=== PATIENT | female | born 1995 | race African-American/Black ===

== ENCOUNTER → 2020-02-06 11:00 | Oncology outpatient (ONC) | payer OTHER, SELFPAY ==
--- NOTE | 2020-01-03 09:37 | ONC.MSW ---
Description: New Referral Navigation Reason for Referral: Irregular menstruation, unspecified abnormal finding/bleeding irregularities Activity: Reviewed referral, assessed medical status, acuity, and immediate needs. Pt is being referred for elevated Factor VIII, bleeding irregularities, and for evaluation, particularly re: or use of hormone medications. Forwarded to scheduling for next available consult visit.
[2020-02-06 12:00] VITALS: BP 109/56; PULSE 72; RESP 16; TEMP 36.7; O2SAT 100
--- NOTE | 2020-02-06 12:43 | P.CONONC_ITS ---
History of Present Illness - Data of Consult Primary Care Provider: Sarika Rios MD - Consult Narrative Narrative: Kourtney Sexton is a 24 year old female who carries a diagnosis of polycystic ovary syndrome who was referred for elevated factor 8 and assessment of venous thromboembolic disease risk. She has a history of irregular menstrual bleeding. Menarche was at age 12 and. His were irregular, often skipping months at a time. Age 17 she began having heavy prolonged bleeding and was started on oral contraceptive pills which controlled her periods well. She also had an IUD in deep probe Provera. Her last injection of depot Provera was in November of 2018. Earlier this year, off the shot, she began to have heavy menstrual. This. She was seen in October at the [facility] in [place]. She had ultrasound done that was suspicious for polycystic ovarian syndrome with prominent ovaries, especially on the right. She had coagulation studies done that showed a normal PT and PTT. Von Willebrand's studies both antigen and activity were normal although in the upper end of the normal range. Factor 8 coagulant was obtained twice on November 19 and also on November 27 with levels of 202%, 210%, and 229% respectively. She was subsequently diagnosed as and is now 17 weeks. She has not had any complications thus far. She is now referred for hematology consultation regarding concern about clotting risk related to her elevated factor 8 level, poly cystic ovary syndrome, and potential need for hormonal medications and her . From her perspective she is generally feeling good. She denies any particular problems with pain, bleeding, localized weakness, fever, chills, nausea, vomiting, cough or shortness of breath. She had 4 wisdom teeth extracted and had no bleeding complications referable to this. She has not had problems with painful leg swelling, pleuritic chest pain, shortness of breath, painful rash on her fingers and toes, or any other thrombotic symptoms. She has no bleeding history except for her menorrhagia. Her mother had a hysterectomy due to menorrhagia and had fibroids of the uterus. There is no other family history of bleeding and no family history of blood clots to her knowledge. She states that she if she gets cut it stops in a normal time frame. She denies any bleeding from her nose, gums, bowels, urine or easy bruising. All other systems are negative. Past medical history 1. 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 She has been in the [employer] the last 5 years. She is in a committed relationship and is accompanied by her significant other who is very supportive. She is not a smoker and only a rare drinker. She does not have a regular exercise program. She generally eats a healthy diet. 2. There is no family history of clotting or bleeding problems as noted above 3. She has no known drug allergies 4. She takes a vitamin but no other medications 5. Except for the wisdom tooth extractions noted above she has had no other operations. 6. She denies high blood pressure, diabetes, rheumatic fever, tuberculosis, heart attacks, strokes, stomach ulcers, pneumonia or any kind of cancer. CC: Sarika Rios MD Home Medications and Allergies Home Medications Medication Instructions Recorded Confirmed Type prenat.vits,bryson,skj-[id number] 1 tab PO DAILY 02/06/20 02/06/20 History [ Vitamin] Allergies Allergy/AdvReac Type Severity Reaction Status Date / Time No Known Drug Allergies Allergy Verified 02/06/20 11:58 Exam Vital signs: Vital Signs Temp Pulse Resp BP Pulse Ox 02/06/20 12:00 98.0 F 72 16 109/56 L 100 Intake and Output 02/05/20 02/06/20 02/06/20 23:59 07:59 15:59 Other: Weight 83.5 kg Patient Weight 02/06/20 23:59 Weight 83.5 kg Narrative: She was in no acute distress. There was no lymphadenopathy in the cervical, supraclavicular axillary regions. Lungs were clear without wheezes or rales. Heart showed a regular rate and rhythm without murmur, gallop or rub. The abdomen is soft and nontender without any palpable hepatosplenomegaly. There was no evidence of phlebitis in the lower extremities. Assessment and Plan (1) Polycystic ovarian syndrome Status: Acute Ms. Sexton has been diagnosed with polycystic ovarian syndrome. This is is a chronic inflammatory condition that can be associated with an increased risk of venous thromboembolic disease. Factor 8 levels can be elevated and appeared to decrease with oral contraceptive therapy as noted in an article published in the [place] Journal of Medical Research volume 148: S1-5 2018. In guidelines published in endocrine practice volume 21 in January of 2015 polycystic ovary syndrome was associated with an approximately 1.5 increased risk of venous thromboembolic disease over that of the general population increasing to 3.7 times that of the general population with oral contraceptives. Another study in the [place] Journal of obstetrics and gynecology volume 207: Page 377, 2012 no onelia poly cystic ovarian syndrome is a hypercoagulable state with a slightly increased risk of venous thromboembolic disease but a protective effect from the use of oral contraceptives. An elevated factor 8 level can be seen in inflammatory conditions. It may be associated with an increased risk of venous thromboembolic disease but does not have direct therapeutic implications. I explained to Ms. Sexton that the relative increase in venous thromboembolic disease translates into very small actual numbers. The annual incidence of venous thrombotic embolic disease is about 4/100,000 in the general population. Accordingly, a 1.5-3.7 fold increase in risk is still very uncommon event. I explained that if she were to have surgery, significant trauma resulting in immobility, or other potentially hypercoagulable events that anticoagulation prophylaxis measures would be the same as those used in the general population. We also discussed the fact that polycystic ovary syndrome can be associated with an increased risk of obstetric complications. These could include miscarriages, gestational diabetes, preeclampsia, Cesarian section, and . I explained her that it would be very important that she be closely followed by her obstetrics team, but that we would not normally initiate any anticoagulation measures other than those that would be routine in the general population. We did discuss long-term strategies to reduce the risk of venous thromboembolic disease. These would include regular exercise, the more intense the better, of at least 3 hours a week. Maintaining ideal body weight is also helpful. She is not currently obese. She understood the role of exercise and weight control and plans to pursue these measures going forward. Impression: 1. Patient has been diagnosed with polycystic ovary syndrome and has an elevated factor 8 2. No personal or family history of blood clots or bleeding other than menorrhagia 3. Patient is 17 weeks by her report Recommendations: 1. Patient was counseled that polycystic ovary syndrome is associated with a relative increased risk of venous thromboembolic disease, unaffected by factor 8 levels, but the absolute risk is quite small 2. Patient was counseled about potentially increased risk of obstetric complications as discussed above, and the importance of following closely with her obstetrics team 3. Prophylaxis for venous thromboembolic disease using the same guidelines as those for the general population 4. Patient was counseled about the importance of regular exercise and maintaining ideal body weight as discussed above 5. Although no specific return appointment has been scheduled to this office, be happy to see her again at any time in the future if I could be of assistance in her care.
== END ==
PROVIDERS: PCP Obstetrics & Gynecology; Referring Provider Obstetrics & Gynecology; Visit Provider Obstetrics & Gynecology
DX: O99.282 Endocrine, nutritional and metabolic diseases complicating pregnancy, second trimester (principal); E28.2 Polycystic ovarian syndrome; Z3A.19 19 weeks gestation of pregnancy
CPT/HCPCS: 99203; 99213

== ENCOUNTER → 2020-05-07 07:53 | Outpatient (CLI) | payer OTHER, SELFPAY ==
[2020-05-07 09:35] LABS: Hematocrit 31.8 % (36-46); Hemoglobin 10.3 g/dL (12.0-16.0)
[2020-05-07 10:21] LABS: GTT (PREG) 1 Hour PP 50gm Dose 93 mg/dL (76-139)
== END ==
PROVIDERS: PCP Obstetrics & Gynecology; Referring Provider Family Medicine; Visit Provider Family Medicine
DX: Z34.90 Encounter for supervision of normal pregnancy, unspecified, unspecified trimester (principal); Z3A.27 27 weeks gestation of pregnancy
CPT/HCPCS: 36415; 82950; 85014; 85018

== ENCOUNTER → 2020-06-18 09:40 | Outpatient (CLI) | payer OTHER, SELFPAY ==
[2020-06-19 10:34] LABS: Strep Grp B PCR POS for Grp B Strep
== END ==
PROVIDERS: PCP Obstetrics & Gynecology; Visit Provider Family Medicine
DX: Z34.93 Encounter for supervision of normal pregnancy, unspecified, third trimester (principal); Z3A.36 36 weeks gestation of pregnancy
CPT/HCPCS: 87653

== ENCOUNTER 2020-07-16 12:04 | Outpatient (CLI) | payer OTHER, SELFPAY ==
--- NOTE | 2020-07-16 12:56 | PM.OBTRLD ---
Visit Information Visit Information Date of evaluation: 07/16/20 Primary OB Provider: Lucia Powell Reason for Evaluation: Yes non-stress test non-stress test reason: other (Post dates) Vital Signs Vital Signs: Temperature 36.8? blood pressure 120/70 heart rate 68 PFSH Medical History Anemia due to chronic blood loss (~2014) Irregular menstrual cycle Polycystic ovarian syndrome Primary dysmenorrhea Vitamin D deficiency Surgical History H/O wisdom tooth extraction (~2014) Family History Mother Uterine fibroid Anemia Adopted Father No problems noted. Grandmother Family history unknown Grandfather Family history unknown Grandmother Cancer Ovarian cancer Grandfather Family history unknown Family estrangement Brother Cancer Retinoblastoma CVA (cerebral vascular accident) Social History marital status: unmarried,living together household members: significant other lives independently: Yes education level: college (some and doing online/[employer] classes currently) occupational status: employed current occupational exposures/hazards: Yes america/zoroastrian: [employer] special america needs: No Smoking Status: Never smoker second hand exposure: No alcohol intake: former (pre- : Wine 1-2X/month = Socially ) substance use type: does not use Evaluation Evaluation Baseline heart rate: 140 Variability: Moderate (11-25) monitor accelerations: Present Monitor Decelerations: Absent Uterine Contraction Intensity: Mild Category of Tracing: Reactive Diagnosis, Plan/Disposition Final Diagnosis (1) 40 weeks gestation of : Status: Acute Plan/Disposition Plan: 24-year-old at 40 weeks and 1 day gestation. NST reactive. Patient is scheduled for induction 07/23/20 if not delivered by then. OB Disposition: home
== END 2020-07-16 12:55 | disposition home or self-care (01) ==
LOC: OB 07-17 07:37
PROVIDERS: PCP Obstetrics & Gynecology; Referring Provider Family Medicine; Visit Provider Family Medicine
DX: O48.0 Post-term pregnancy (principal); Z3A.40 40 weeks gestation of pregnancy
CPT/HCPCS: 59025; G0378; G0379

== ENCOUNTER 2020-07-16 19:26 | Observation (INO) | payer OTHER, SELFPAY ==
[2020-07-16] MEDS: MORPHINE 10 MG/ML INJ 5 MG IM (22:13)
[2020-07-16] MEDS: PROMETHAZINE 25 MG TABLET PO (22:13)
== END 2020-07-16 22:25 | disposition home or self-care (01) ==
PROVIDERS: Admitting Provider Obstetrics & Gynecology; PCP Obstetrics & Gynecology; Referring Provider Obstetrics & Gynecology; Visit Provider Obstetrics & Gynecology
DX: O48.0 Post-term pregnancy (principal); Z3A.40 40 weeks gestation of pregnancy
CPT/HCPCS: 59025; 59050; 96372; G0378; G0379; J2270

== ENCOUNTER 2020-07-17 08:52 | Inpatient (IN) | payer OTHER, SELFPAY ==
[2020-07-17] MEDS: LACTATED RINGERS 1,000 ML 100 ML IV ×2 (09:44→11:42)
[2020-07-17] MEDS: PENICILLIN G POTASSIUM 5,000,000 UNIT in DEXTROSE 5% IN WATER 250 ML IV (09:51)
[2020-07-17 10:02] VITALS: BP 112/66
[2020-07-17 10:17] LABS: COVID19 - ADMIT (NP swab/PCR) Negative (Negative)
[2020-07-17 10:18] LABS: Add Manual Diff / Slide Review NO; Basophils Absolute Auto 100 /uL (0-100); Basophils Percent Auto 1.1 % (0-2); Eosinophils Absolute Auto 0 /uL (0-450); Eosinophils Percent Auto 0.1 % (2-4); Hematocrit 35.9 % (36-46); Hemoglobin 11.6 g/dL (12.0-16.0); Lymphocytes Absolute Auto 1200 /uL (1100-4500); Lymphocytes Percent Auto 11.7 % (25-40); Mean Corpuscular HGB Conc 32.2 % (30-36); Mean Corpuscular Hemoglobin 26.4 PG (26-34); Monocytes Absolute Auto 600 /uL (0-900); Monocytes Percent Auto 6.3 % (3-14); Neutrophils Absolute Auto 8200 /uL (1500-7000); Neutrophils Percent Auto 80.8 % (50-75); Platelet Count 291 X10^3/uL (150-400); Red Blood Cell Count 4.38 X10^6/uL (4.0-5.2); Red Cell Distribution Width 17.1 % (11.6-14.8); White Blood Cell Count 10.1 X10^3/uL (4.5-11.0)
--- NOTE | 2020-07-17 10:34 | P.HPOB_ITS ---
OB HPI Date/Time Date of admission: 07/17/20 Date Patient Seen: 07/17/20 Time Patient Seen: 10:50 History of Present Condition Chief complaint: Observation : 1 Para: 0 Estimated Date of Delivery: 07/15/20 Estimated Gestational Age (weeks): 40w2d Narrative: Kourtney Sexton is a 24 year old at 40 weeks and 2 days gestation. She was seen in clinic yesterday and had membranes swept. She continued to contract the rest of the day and presented to the center in the evening. At that time her cervical exam was unchanged and she was sent home. She could not sleep during the night due to contractions. At about 8:00 a.m. today contractions picked up after passage of her mucus plug. She denies leaking or bleeding and reports good movement. Denies headaches, vision changes abdominal pain or edema. has been uncomplicated. She transferred care from the [facility] at 23 weeks. She was found have elevated Factor VIII as part of a workup for menorrhagia. She saw Dr Joseph with Hematology on 02/06/20. Given no personal or family history of blood clot there was no indication for treatment. History of Present care: good care, initiated at week # (15), number of visits (13) and pounds weight gain (51) Dating criteria: based on 1st trimester US only Ultrasounds: normal 1st trimester US and normal mid trimester US Obstetrical complications: none Medical complications: none Preadmission Labs Blood type: B (+) positive -: Antibody screen: negative, GBS status: positive, HBsAG: negative, HIV: negative and RPR/VDLR: negative -: Chlamydia screen: not detected and Gonorrhea screen: not detected -: Rubella: immune and Varicella: immune HCT: 35.9 HCAB: negative PAP: Normal Quad screen: Normal Urine: Negative 1 hr GTT: 93 Evaluation Evaluation Baseline heart rate: 140 Variability: Moderate (11-25) monitor accelerations: Present Monitor Decelerations: Absent Contraction Frequency (minutes): 4 Status: Category l Cervical dilation (cm): 5 Cervical effacement (%): 100 station: -2 Laboratory results: Laboratory Tests 07/17/20 07/17/20 09:30 09:56 WBC 10.1 RBC 4.38 Hgb 11.6 L Hct 35.9 L MCV 82.0 MCH 26.4 MCHC 32.2 RDW 17.1 H Plt Count 291 Neut % (Auto) 80.8 H Lymph % (Auto) 11.7 L [place] % (Auto) 6.3 Eos % (Auto) 0.1 L Baso % (Auto) 1.1 Neut # (Auto) 8200 H Lymph # (Auto) 1200 [place] # (Auto) 600 Eos # (Auto) 0 Baso # (Auto) 100 SARS-CoV-2 (PCR) Negative PFSH Medical History Anemia due to chronic blood loss (~2014) Irregular menstrual cycle Polycystic ovarian syndrome Primary dysmenorrhea Vitamin D deficiency Surgical History H/O wisdom tooth extraction (~2014) Family History Mother Uterine fibroid Anemia Adopted Father No problems noted. Grandmother Family history unknown Grandfather Family history unknown Grandmother Cancer Ovarian cancer Grandfather Family history unknown Family estrangement Brother Cancer Retinoblastoma CVA (cerebral vascular accident) Social History marital status: unmarried,living together household members: significant other lives independently: Yes education level: college (some and doing online/[employer] classes currently) occupational status: employed current occupational exposures/hazards: Yes am[place]/faith: [employer] special america needs: No Smoking Status: Never smoker second hand exposure: No alcohol intake: former (pre- : Wine 1-2X/month = Socially ) substance use type: does not use Meds Home Medications and Allergies Home Medications Medication Instructions Recorded Confirmed Type prenat.vits,bryson,[id number] 1 tab PO DAILY 02/06/20 07/17/20 History [ Vitamin] Allergies Allergy/AdvReac Type Severity Reaction Status Date / Time No Known Drug Allergies Allergy Verified 07/16/20 20:03 Review of Systems Review of Systems ROS: Yes All systems reviewed with the patient and are negative except as otherwise documented Exam Vital Signs (past 8 hours): - 07/17/20 10:02 Blood Pressure 112/66 Const General: healthy appearing and comfortable [facility] Head: normal to inspection Ears: hearing grossly normal bilaterally Nose: external nose normal Face and sinus: normal facial exam Mouth: oral mucosae normal Eyes General: appearance normal, both eyes and all related structures Neck Neck: normal visual inspection Resp Effort & Inspection: normal respiratory effort Auscultation: clear to auscultation bilaterally Cardio Rate: regular rate Rhythm: regular rhythm Heart Sounds: no murmurs GI Other: Gravid External Female Exam: normal external appearance Manual OB Exam: dilated 5, effaced fully and station -2 Presentation: vertex Estimated Weight (lbs): 8 Back/Spine/Pelvis Back: normal to inspection Skin General: no rashes or lesions noted Extrem General: normal to inspection and no pedal edema Objective Labs Result Diagrams: 07/17/20 09:30 Labs: Laboratory Results - last 24 hr 07/17/20 07/17/20 09:30 09:56 WBC 10.1 RBC 4.38 Hgb 11.6 L Hct 35.9 L MCV 82.0 MCH 26.4 MCHC 32.2 RDW 17.1 H Plt Count 291 Neut % (Auto) 80.8 H Lymph % (Auto) 11.7 L [place] % (Auto) 6.3 Eos % (Auto) 0.1 L Baso % (Auto) 1.1 Neut # (Auto) 8200 H Lymph # (Auto) 1200 [place] # (Auto) 600 Eos # (Auto) 0 Baso # (Auto) 100 SARS-CoV-2 (PCR) Negative Assessment and Plan Assessment and Plan Assessment and Plan narrative: 24-year-old at 40 weeks and 2 days in active labor. has been uncomplicated with good care. She is GBS positive. Plan Admit for labor Penicillin for GBS prophylaxis Epidural now COVID negative Anticipate
[2020-07-17] MEDS: FENT 2MCG/ML BUPIV 0.125% EPI 200 MCG/100 ML PLAST..BAG 12 MCG EPIDURAL ×2 (10:50→15:04)
[2020-07-17] MEDS: PENICILLIN G POTASSIUM 3,000,000 UNIT/50 ML FROZ.PIGGY 100 UNIT IV ×2 (13:48→17:43)
--- NOTE | 2020-07-17 14:40 | PM.OBPNLAB ---
Date/Time Date Patient Seen: 07/17/20 Time Patient Seen: 14:30 Pain Control Pain control: tolerating well and epidural Comments: Complete relief with epidural. Pelvic Exam Dilation (cm): 8 Effacement (%): 100 station: -1 Amniotic membrane status: Ruptured (AROM clear fluid) Contractions Contraction frequency (min): 5 Contraction pattern: Regular Status status: Category l Heart Rate Baseline: 130 Monitor Accelerations: Present Monitor Decelerations: Absent Assessment and Plan Assessment: active labor Plan: continuous present management Comments: 24 year old at 40+2 weeks, progressing well, comfortable with epidural, AROM with clear fluid. She has now received two doses of PCN for GBS prophylaxis. Continue expectant management, anticipate .
--- NOTE | 2020-07-17 19:09 | P.PCNOB_ITS ---
Labor & Delivery Delivery date: 07/17/20 Delivery augmentation: rupture of membranes Delivery monitor: external FHT Route of delivery: L&D Laceration Description: Perineal - 2nd Degree and Vaginal - 2nd Degree Delivery repair: vicryl Estimated blood loss (mL): 750 Anesthesia Type: Epidural Narrative: Patient is a 24-year-old at 40 weeks and 2 days who gave on 07/17/2020 at 18:42. ROXANA: 07/15/20 Hospital problems: 40 weeks of Epidural analgesia STAGE I: Labor Patient presented in active labor. Labor began at approximately 8:00 a.m. after a long latent labor. She went on to receive an epidural with excellent pain control. She was GBS positive and received penicillin for prophylaxis. After 2 doses of antibiotics, artificial rupture membranes occurred at 2:31 p.m. with clear fluid. She was complete at 5:50 p.m.. heart tones were category 1 throughout stage I. Stage I duration 9 hours and 50 minutes STAGE II: Delivery Spontaneous vaginal delivery occurred at 6:42 p.m.. Infant was vertex and MARINA. He was immediately placed on mother's abdomen. Cord was clamped and cut after 1 minute delay. Apgars were 9 and 9. No resuscitation of the required. Stage II duration 52 minutes. No resuscitation of the required. STAGE III: Placenta/Cord Placenta delivered at 6:46 p.m. after active management and appeared intact with a three-vessel cord. Patient passed several large clots with fundal massage during repair. Pitocin bolus was then started via IV. A second-degree vaginal and perineal laceration was repaired in the usual fashion with 3-0 Vicryl with good hemostasis. After repair the QBL bag was found to have 750 mL of blood though some amniotic fluid next in. Patient was given a dose of Methergine. Uterus was firm below umbilicus. Will monitor bleeding closely and check H&H in the morning. Blood pressure was normal and patient asymptomatic. Needle and sponge counts were correct. The vagina was inspected and no items were left in situ. Patient was doing well with Holden, her and partner at bedside. [place] Baby 1: gender: Male Presentation: vertex Position: Right Occiput Anterior Placenta delivery description: Spontaneous Cord Vessel Description: 3 Vessels Plan for aftercare: Routine care
[2020-07-17] MEDS: METHYLERGONOVINE 0.2 MG/ML VIAL IM (19:31)
[2020-07-17] MEDS: ACETAMINOPHEN 325 MG TABLET 650 MG PO (21:57)
[2020-07-17] MEDS: IBUPROFEN 600 MG TABLET PO (21:57)
[2020-07-17] MEDS: DERMOPLAST SPRAY 20% 60 ML 1 SPRAY TOP (21:57)
[2020-07-17] MEDS: LANOLIN OINT 7 GM 1 APPLIC TOP (22:11)
[2020-07-18] MEDS: DERMOPLAST SPRAY 20% 60 ML 1 SPRAY TOP (04:16)
[2020-07-18 06:26] LABS: Hematocrit 30.5 % (36-46); Hemoglobin 9.7 g/dL (12.0-16.0)
[2020-07-18] MEDS: DOCUSATE 100 MG CAPSULE PO (09:02)
[2020-07-18] MEDS: ACETAMINOPHEN 325 MG TABLET 650 MG PO (09:02)
[2020-07-18] MEDS: IBUPROFEN 600 MG TABLET PO ×2 (09:02→17:11)
[2020-07-18] MEDS: PRENATAL VIT,CALC/IRON/FOLIC 1 TABLET 1 TAB PO (09:02)
--- NOTE | 2020-07-18 13:25 | P.PNOB_ITS ---
Subjective - OB Subjective Patient comments: no complaints, pain well controlled, tolerating diet and flatus present baby status: doing well feeding status: breast and bottle feeding Date Patient Seen: 07/18/20 Time Patient Seen: 13:00 Interval history: Overall patient feels well. She is struggling with breast- feeding and receiving support from . Nipples are inverted in very sore from attempts so she has given maybe a small amount of formula. She is ambulating, voiding, eating and passing flatus. Vaginal bleeding was heavier last night but quite light this morning. Pain controlled with ibuprofen only. Exam Vital Signs (past 8 hours): Temperature 98.2? blood pressure 111/61 heart rate 81 respirations 16 Narrative Exam Narrative: General: Awake and alert, no acute distress. HEENT: NCAT, EOMI, moist oral mucosa CV: Regular rate and rhythm, no murmurs, rubs or gallops Lungs: CTAB, no wheezes, rales, or rhonchi Abdomen: Soft, nontender; bowel tones active; uterus firm 1 cm below umbilicus Extremities: Warm, no edema Objective Labs Result Diagrams: 07/18/20 06:20 Labs: Laboratory Results - last 24 hr 07/18/20 06:20 Hgb 9.7 L Hct 30.5 L Assessment & Plan Assessment and Plan (1) Spontaneous vaginal delivery: Status: Acute (2) hemorrhage: Status: Acute Plan day: 1 plan OB: routine care Comments: Doing well day 1 after spontaneous vaginal delivery. She did have a mild hemorrhage which responded to Pitocin and Methergine after delivery. Bleeding this morning is light and vital signs normal. Denies symptoms of anemia. Will continue to monitor bleeding. Anticipate discharge home tomorrow. Time Spent With Patient Time: Total time spent is greater than 50% in coordination of care (as documented) at patient's floor/unit and/or counseling patient: Time with patient: 15-24 minutes
[2020-07-19] MEDS: IBUPROFEN 600 MG TABLET PO (05:22)
--- NOTE | 2020-07-19 08:26 | PM.OBDS.1 ---
Discharge Providers Provider Date of admission: 07/17/20 08:52 Discharge Date: 07/19/20 Primary care physician: Sarika Rios MD Consults: 07/17/20 09:33 Consult to Anesthesiology Urgent Comment: Consulting Provider: Anesthesiologist Reason for consultation: epidural 07/18/20 19:13 Consult to Automotive Customer Experience Advisor Routine Comment: Discharge provider: Lucia Powell DO Summary Hospital Course Date Patient Seen: 07/19/20 Time Patient Seen: 07:31 Hospital Course: Patient is a 24-year-old G1 now P1 after uncomplicated spontaneous vaginal delivery on 07/17/20 at 40 weeks and 2 days. Patient presented in active labor and went on to receive an epidural. She delivered a vigorous male infant. Immediately she had more bleeding than usual so was given Methergine in addition to Pitocin. Bleeding well controlled after interventions. EBL was 750 mL. course uncomplicated. Bleeding was light. Pain controlled with ibuprofen. She was eating, ambulating and voiding without difficulty. She was struggling with breast-feeding and latching so prefers to pump and bottle feed. was also taking formula prior to discharge. Advised patient to call for fevers, severe pain or bleeding through more than a pad an hour. She will follow-up in clinic in 6 weeks but we will also be seeing her with her . Peripartum Data Infant Delivery Method: Natural Vaginal Laceration Description: Perineal - 2nd Degree and Vaginal - 2nd Degree complications: none [place] 1: Gender: Male Disposition of : home Discharge Diagnosis (1) Spontaneous vaginal delivery: Status: Acute (2) hemorrhage: Status: Acute (3) 40 weeks gestation of : Status: Acute Status at Discharge Cognitive/behavioral status at discharge: at baseline, oriented Overall status at discharge: patient is progressing back to baseline Time Spent with Patient Time attestation: Total time spent providing and/or coordinating discharge services: Time spent: Less than 30 minutes Objective Labs Result Diagrams: 07/18/20 06:20 Exam Vital Signs (past 8 hours): Temperature 98.9? blood pressure 117/70 heart rate 74 respirations 16 Narrative Exam Narrative: General: Awake and alert, no acute distress. HEENT: NCAT, EOMI, moist oral mucosa CV: Regular rate and rhythm, no murmurs, rubs or gallops Lungs: CTAB, no wheezes, rales, or rhonchi Abdomen: Soft, nontender; bowel tones active; uterus firm 1 cm below umbilicus Extremities: Warm, no edema Discharge Plan Discharge Plan Patient Disposition: Home Discharge orders & Medications Prescriptions: New docusate sodium [DOK] 100 mg Capsule 100 mg PO DAILY Qty: 30 RF: 0 ibuprofen 600 mg Tablet 600 mg PO Q6HR PRN (Reason: Pain, Mild (1-3)) Qty: 30 RF: 0 Continued prenat.vits,bryson,[id number] Tablet 1 tab PO DAILY RF: 0 Follow up/Referrals: Sarika Rios MD [Primary Care Provider] - Lucia Powell DO [Physician] - 6 Weeks (Please follow up with Dr. Powell on August 29 at 1100 am.) Visit Report/Discharge Packet Stand Alone Forms: Discharge: Care Visit Report Forms: Patient Portal/API, Stroke Signs & Symptoms Discharge Data Primary Care Provider: Sarika Rios Discharges patient from system. Discharge Date/Time: 07/19/20 10:10
== END 2020-07-19 10:10 | disposition home or self-care (01) | DRG 807 ==
PROVIDERS: Admitting Provider Family Medicine; PCP Obstetrics & Gynecology; Referring Provider Family Medicine; Visit Provider Family Medicine
DX: O99.824 Streptococcus B carrier state complicating childbirth (principal); Z37.0 Single live birth; Z3A.40 40 weeks gestation of pregnancy; O70.1 Second degree perineal laceration during delivery; O72.2 Delayed and secondary postpartum hemorrhage; Z20.822 Contact with and (suspected) exposure to COVID-19
CPT/HCPCS: 01967; 36415; 59050; 59410; 85014; 85018; 85025; 86850; 86900; 86901; 87635; C9803; G0379; J2210; J2540

== ENCOUNTER → 2021-08-04 09:54 | Outpatient (CLI) | payer OTHER, SELFPAY ==
--- NOTE | 2021-08-04 | DI.ECHO.S_ITS ---
[facility] +---------+ : : [address] : [address] : : : : [id number] : : : : Phone: [phone]+ Echocardiogram Report + + :Name: AUDRA BROOKS Study Date: 08/04/2021 Height: 72 in : :[facility] ReadingLocation: Weight: 162 lb : : Gender: Female BSA: 1.9 m2 : :: 1995 Age: 25 yrs BP: 105/65 mmHg: :Reason For Study: Marfanoid habitus : :Ordering Physician: MAAME, : :REGINE Performed By: Hai Baum : :Referring: REGINE QUIJANO : + + Interpretation Summary 1) Normal left ventricular thickness, size, wall motion, and systolic function (EF 55-60%). 2) Normal right ventricular size and function. 3) No significant valvular abnormalities. 4) No prior Echo available for comparison. Procedure: A two-dimensional transthoracic echocardiogram with color flow and Doppler was performed. The study quality was technically adequate. There is no prior echocardiogram noted for this patient. The patient was in normal sinus rhythm during the exam. Left Ventricle: The left ventricle is normal in size and wall thickness. Left ventricular systolic function is normal. The ejection fraction is estimated to be 55-60%. There are no focal wall motion abnormalities. Diastolic parameters suggest probable normal left ventricular diastolic function and normal filling pressures. Right Ventricle: The right ventricle is normal in size and function. Atria: Both atria are normal in size. The interatrial septum grossly appears intact with no obvious evidence for an atrial septal defect. Mitral Valve: The mitral valve is normal in structure and function. There is trace mitral regurgitation. Aortic Valve: The aortic valve is normal in structure and function. There is no aortic valve stenosis. No aortic regurgitation is present. Tricuspid Valve: The tricuspid valve is normal in structure and function. There is a trace or physiologic amount of tricuspid regurgitation. Right ventricular systolic pressure is normal. Pulmonic Valve: The pulmonic valve is normal in structure and function. There is mild pulmonic regurgitation. Great Vessels: The aortic root is normal size. The dimensions of the ascending aorta are normal. The IVC is of normal diameter and collapses greater than 50% with a sniff. This suggests a low right atrial pressure of 3 mm Hg. Pericardium/ Pleura There is no pericardial effusion. There is no pleural effusion. MMode/2D Measurements & Calculations LVIDd: 5.1 cm LVOT diam: 2.0 cm LVIDs: 3.6 cm Ao root diam: 2.5 cm FS: 29.4 % asc Aorta Diam: 2.8 cm IVSd: 0.70 cm LVPWd: 0.80 cm LV katz. diameter/BSA (cm/m^2): 2.6 LV sys. diameter/BSA (cm/m^2): 1.8 LA dimension: 3.1 cm RA long axis: 3.9 cm LA A2 area: 15.6 cm2 IVC diam: 1.7 cm LA A4 area: 13.6 cm2 LA length (vol): 4.8 cm LA vol: 37.7 ml LA vol index: 19.3 ml/m2 TAPSE_phl: 2.1 cm Doppler Measurements & Calculations Ao V2 max: 139.0 cm/sec LVOT Max Rashawn: 132.0 cm/sec Ao V2 mean: 100.0 cm/sec LV V1 max P.0 mmHg Ao max P.0 mmHg LV V1 VTI: 26.3 cm Ao mean P.0 mmHg SEFERINO(I,D): 3.0 cm2 Ao V2 VTI: 27.4 cm SEFERINO(V,D): 3.0 cm2 sev ratio: 0.96 SEFERINO indexed to BSA (cm^2/m^2): 1.5 MV E max rashawn: 112.0 cm/sec TR max rashawn: 169.0 cm/sec MV A max rashawn: 50.1 cm/sec TR max P.4 mmHg MV E/A: 2.2 Med Peak E' Rashawn: 11.1 cm/sec E/E' med: 10.1 Lat Peak E' Rashawn: 17.7 cm/sec E/E' lat: 6.3 E/e' average: 8.2 MV dec time: 0.20 sec SV(LVOT): 82.6 ml AV VR_phl: 0.95 SEFERINO(VTI)/BSA_phl: 1.5 MV P1/2t-pr_phl: 60.0 msec Reading Physician:11:10 AM
== END ==
PROVIDERS: PCP Obstetrics & Gynecology; Referring Provider Internal Medicine Cardiovascular Disease; Visit Provider Internal Medicine Cardiovascular Disease
DX: I37.1 Nonrheumatic pulmonary valve insufficiency (principal); R29.91 Unspecified symptoms and signs involving the musculoskeletal system
CPT/HCPCS: 93306

== ENCOUNTER → 2022-10-21 12:56 | Outpatient (CLI) | payer OTHER, SELFPAY ==
--- NOTE | 2022-10-21 | DI.MRI.S_ITS ---
PROCEDURE: MR BRAIN (PITUITARY) WWO CON INDICATIONS: Acromegaly and pituitary gigantism TECHNIQUE: Noncontrast sagittal and axial FLAIR, axial gradient echo, axial diffusion and ADC through the brain. Thin-slice sagittal and coronal T1 spin echo, coronal T2 fast spin echo through the pituitary. After the administration contrast, optional dynamic coronal T1 spin echo, thin-slice coronal and sagittal T1 spin echo images through the pituitary fossa; axial and coronal and sagittal T1 spin echo with fat saturation through the brain. COMPARISON: None. FINDINGS: Image quality: Excellent. Pituitary Gland: Within the left side of the adenohypophysis, there is a focal hypo enhancing nodule which is ill-defined and fills in delayed imaging. Nodule measures 5.4 x 5.9 x 3.2 mm, and does result in rightward deviation of the pituitary infundibulum. No suprasellar or cavernous sinus invasion, although, the gland is overall prominent at 1.1 x 1.3 cm. No mass effect on the optic chiasm CSF Spaces: Ventricles are normal in size and shape. Basal cisterns are patent. No extra-axial fluid collections. Brain: No intracranial bleeds or mass effects. No abnormal intracranial enhancement. Fontanez-white matter interface is intact. Diffusion weighted images demonstrate no acute ischemic insults. Brainstem is normal. Normal intravascular flow voids are present. Skull and face: Calvarial marrow is normal in signal. Orbits appear normal. Sinuses: Sinuses and mastoids are clear. IMPRESSION: Left-sided pituitary microadenoma with mild mass effect but no suprasellar or cavernous sinus involvement Approved by: Juan Alberto Self M.D. on 10/21/2022 at 18:15
== END ==
PROVIDERS: PCP Obstetrics & Gynecology; Referring Provider Internal Medicine; Visit Provider Internal Medicine
DX: E22.0 Acromegaly and pituitary gigantism (principal); D35.2 Benign neoplasm of pituitary gland
CPT/HCPCS: 70553; A9579